=== PATIENT | male | born 1960 | race Caucasian/White ===

== ENCOUNTER 2017-01-18 04:10 | Observation (INO) | payer OTHER ==
[~2017-01-18] VITALS: Ht 185.4 cm; Wt 101.0 kg
[2017-01-18] VITALS (12 sets, daily range): BP systolic 138–224; BP diastolic 77–119; PULSE 63–98; RESP 18–20; TEMP 97.9–98.7; O2SAT 96–100
[2017-01-18] MEDS ORDERED: CHOLMIS5 (04:28)
[2017-01-18] MEDS ORDERED: [UNRECOGNIZED DRUG - REMARK] (04:28)
[2017-01-18] MEDS ORDERED: LISI2.5T3 PO (04:28)
[2017-01-18] MEDS ORDERED: SODIUM CHLORIDE 0.9% FLUSH 10 ML FLUSH IVF PRN (04:30)
[2017-01-18] MEDS ORDERED: PAIN (04:30)
[2017-01-18 04:38] LABS: AUTOMATED NEUTROPHIL # 4.8 TH/MM3 (1.8-7.7); BASOPHIL # 0.1 TH/MM3 (0-0.2); BASOPHIL % 1.4 % (0.0-2.0); EOSINOPHIL # 0.1 TH/MM3 (0-0.4); EOSINOPHIL % 1.5 % (0.0-4.0); HEMATOCRIT 45.4 % (39.0-51.0); HEMO FLAGS DIFF FINAL; LYMPH % 33.5 % (9.0-44.0); MEAN CELL VOLUME 90.7 FL (80.0-100.0); MEAN CORPUSCULAR HGB CONC 33.1 % (32.0-36.0); MONO % 9.1 % (0.0-8.0); NEUT % 54.5 % (16.0-70.0); PLATELET COUNT 177 TH/MM3 (150-450); RED BLOOD COUNT 5.01 MIL/MM3 (4.50-5.90); RED CELL DISTRIBUTION WIDTH 13.3 % (11.6-17.2); WHITE BLOOD COUNT 8.9 TH/MM3 (4.0-11.0)
[2017-01-18 04:53] LABS: APTT (PATIENT) 26.4 SEC (24.3-30.1); PROTHROMBIN TIME - PATIENT 10.5 SEC (9.8-11.6)
--- NOTE | 2017-01-18 04:55 | PD ---
HPI Chief Complaint: Chest Pain Time Seen by Provider: 04:31 Travel History International Travel<30 days: No Contact w/Intl Traveler<30days: No Traveled to known affect area: No History of Present Illness HPI 56-year-old male notes central chest pain that is sharp and awoken from rest. He states he came here to rule out an MA given how severe it was. 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 He states the pain is worse with movement. He denies taking an aspirin today. He states he had a stress test routinely a couple years ago that was okay. He does not follow with a thermodynamic physicist. He denies prior heart issues. He denies other complaints. He notes prior history of herniated disc that felt similar in a different location. He denies history of blood clots but does note multiple long car trips over the past couple weeks PFSH Past Medical History High Cholesterol: Yes Hypertension: Yes Musculoskeletal: Yes (SPINE) Sleep Apnea: Yes Tetanus Vaccination: < 5 Years Influenza Vaccination: Yes Past Surgical History Abdominal Surgery: Yes (REPAIr UMBILICAL HERNIA) Other Surgery: Yes (tendon repair left hand) Social History Alcohol Use: Yes (one glass red wine a day) Tobacco Use: Yes ( CIGAR EVERY 3 WEEKS) Substance Use: No Allergies-Medications (Allergen,Severity, Reaction): Coded Allergies: No Known Allergies (Unverified , 01/18/17) Reported Meds & Prescriptions Reported Meds & Active Scripts Active Reported [Pain] [Cholesterol] [Mood ] Lisinopril 2.5 Mg Tab 2.5 Mg PO DAILY Review of Systems Except as stated in HPI: all other systems reviewed are Neg Physical Exam Narrative GENERAL: Well-nourished, well-developed patient. SKIN: Warm and dry. HEAD: Normocephalic and atraumatic. EYES: No injection or drainage. ENT: No nasal drainage noted. NECK: Supple, trachea midline. CARDIOVASCULAR: Regular rate and rhythm RESPIRATORY: Breath sounds equal bilaterally. No accessory muscle use. GASTROINTESTINAL: Abdomen soft, non-tender, nondistended. EXTREMITIES: No edema. NEUROLOGICAL: Awake and alert. Motor and sensory grossly within normal limits. Normal speech. Data Data Last Documented VS Vital Signs Date Time Temp Pulse Resp B/P Pulse Ox O2 Delivery O2 Flow Rate FiO2 01/18/17 05:18 68 18 183/108 100 Room Air 01/18/17 04:11 98.5 Orders Electrocardiogram (01/18/17 04:26) Ckmb (Isoenzyme) Profile (01/18/17 04:26) Complete Blood Count With Diff (01/18/17 04:26) Comprehensive Metabolic Panel (01/18/17 04:26) Magnesium (Mg) (01/18/17 04:26) Prothrombin Time / Inr (Pt) (01/18/17 04:26) Act Partial Throm Time (Ptt) (01/18/17 04:26) Troponin I (01/18/17 04:26) Chest, Single Ap (01/18/17 04:26) Ecg Monitoring (01/18/17 04:26) Bilateral Bp Monitoring (01/18/17 04:26) Iv Access Insert/Monitor (01/18/17 04:26) Oximetry (01/18/17 04:26) Sodium Chloride 0.9% Flush (Ns Flush) (01/18/17 04:30) Aspirin (Aspirin) (01/18/17 05:00) D-Dimer (01/18/17 04:58) CKMB (01/18/17 04:31) CKMB% (01/18/17 04:31) Nitroglycerin Sl (Nitrostat Sl) (01/18/17 05:30) Enalaprilat Inj (Vasotec Inj) (01/18/17 05:45) Admit Order (Ed Use Only) (01/18/17 05:44) Activity Bed Rest With Brp (01/18/17 05:44) Vital Signs (Adult) Q4H (01/18/17 05:44) Cardiac Rhythm .As Directed (01/18/17 05:44) Notify Dr: Other .PRN (01/18/17 05:44) Notify Dr. Parameters (01/18/17 05:44) Resp Oxygen Nasal Cannula (01/18/17 ) Ckmb (Isoenzyme) Profile (01/18/17 05:44) Ckmb (Isoenzyme) Profile (01/18/17 08:44) Troponin I (01/18/17 05:44) Troponin I (01/18/17 08:44) Electrocardiogram (01/18/17 05:44) Electrocardiogram (01/18/17 08:44) ^ Obtain (01/18/17 05:44) Rn Ante Partum / Telemetry RICK.Q8H (01/18/17 05:44) Labs Laboratory Tests Test 01/18/17 04:31 White Blood Count 8.9 TH/MM3 Red Blood Count 5.01 MIL/MM3 Hemoglobin 15.0 GM/DL Hematocrit 45.4 % Mean Corpuscular Volume 90.7 FL Mean Corpuscular Hemoglobin 30.0 PG Mean Corpuscular Hemoglobin 33.1 % Concent Red Cell Distribution Width 13.3 % Platelet Count 177 TH/MM3 Mean Platelet Volume 10.3 FL Neutrophils (%) (Auto) 54.5 % Lymphocytes (%) (Auto) 33.5 % Monocytes (%) (Auto) 9.1 % Eosinophils (%) (Auto) 1.5 % Basophils (%) (Auto) 1.4 % Neutrophils # (Auto) 4.8 TH/MM3 Lymphocytes # (Auto) 3.0 TH/MM3 Monocytes # (Auto) 0.8 TH/MM3 Eosinophils # (Auto) 0.1 TH/MM3 Basophils # (Auto) 0.1 TH/MM3 CBC Comment DIFF FINAL Differential Comment Prothrombin Time 10.5 SEC Prothromb Time International 1.0 RATIO Ratio Activated Partial 26.4 SEC Thromboplast Time D-Dimer Quantitative (PE/DVT) 0.40 MG/L FEU Sodium Level 141 MEQ/L Potassium Level 4.1 MEQ/L Chloride Level 107 MEQ/L Carbon Dioxide Level 27.4 MEQ/L Anion Gap 7 MEQ/L Blood Urea Nitrogen 12 MG/DL Creatinine 1.21 MG/DL Estimat Glomerular Filtration 62 ML/MIN Rate Random Glucose 107 MG/DL Calcium Level 9.0 MG/DL Magnesium Level 2.0 MG/DL Total Bilirubin 0.3 MG/DL Aspartate Amino Transf 29 U/L (AST/SGOT) Alanine Aminotransferase 37 U/L (ALT/SGPT) Alkaline Phosphatase 87 U/L Total Creatine Kinase 104 U/L Creatine Kinase MB 0.9 NG/ML Troponin I LESS THAN 0.02 NG/ML Total Protein 7.6 GM/DL Albumin 3.8 GM/DL [facility] Medical Decision Making Medical Screen Exam Complete: Yes Emergency Medical Condition: Yes Medical Record Reviewed: Yes (past history confirmed) Interpretation(s) EKG shows NSR, no ST elevation or depression, and no arrhythmias. No significant T-wave inversions. CBC & BMP Diagram 01/18/17 04:31 Last 24 hours Impressions Chest X-Ray 01/18/17 0426 Signed Impressions: Service Date/Time: Wednesday, January 18, 2017 04:35 - CONCLUSION: No acute cardiopulmonary disease. Mila Lyons MD Differential Diagnosis Musculoskeletal, gastritis, PE, cardiac Narrative Course Will check blood work, chest x-ray, EKG and dose with aspirin and reevaluate ed workup no acute, patient given nitro without change, will dose with vasotec as takes lisinopril for htn and admit to dairy technologist Diagnosis Primary Impression: Chest pain Qualified Code: R07.9 - Chest pain, unspecified type Additional Impression: Uncontrolled hypertension Milka Abraham MD January 18, 2017 04:55
[2017-01-18] MEDS ORDERED: ASPIRIN 325 MG TAB PO ONE (05:00)
[2017-01-18 05:01] LABS: ALT (GPT) 37 U/L (12-78); ANION GAP 7 MEQ/L (5-15); AST (GOT) 29 U/L (15-37); BICARBONATE 27.4 MEQ/L (21.0-32.0); BLOOD UREA NITROGEN 12 MG/DL (7-18); CHLORIDE 107 MEQ/L (98-107); GLOMERULAR FILTRATION RATE 62 ML/MIN (>89); POTASSIUM 4.1 MEQ/L (3.5-5.1); SODIUM (NA) 141 MEQ/L (136-145)
[2017-01-18 05:02] LABS: ALKALINE PHOSPHATASE 87 U/L (45-117); CREATINE KINASE 104 U/L (39-308); TOTAL BILIRUBIN ADULT 0.3 MG/DL (0.2-1.0)
--- NOTE | 2017-01-18 05:05 | RADRPT ---
EXAM DATE/TIME: 01/18/2017 04:35 [facility] COMPARISON: No previous studies available for comparison. INDICATIONS : Chest pain. MEDICAL HISTORY : None. SURGICAL HISTORY : None. ENCOUNTER: Initial ACUITY: 1 day PAIN SCORE: 6/10 LOCATION: Bilateral chest FINDINGS: The lungs are clear without infiltrate, nodule, or mass. There is no appreciable pleural effusion fo r technique. Heart and mediastinum are unremarkable. CONCLUSION: No acute cardiopulmonary disease. Mila Lyons MD on January 18, 2017 at 5:04 Board Certified Radiologist. This report was verified electronically.
[2017-01-18 05:14] LABS: CKMB 0.9 NG/ML (0.5-3.6)
[2017-01-18] MEDS ORDERED: NITROGLYCERIN 0.4 MG SL 25 TABS/BTL SL ONE (05:30)
[2017-01-18] MEDS ORDERED: ENALAPRILAT 2.5 MG/2 ML VIAL IV PUSH ONE (05:45)
[2017-01-18 08:19] LABS: CREATINE KINASE 71 U/L (39-308)
[2017-01-18] MEDS ORDERED: traMADol HCL 50 MG TAB PO PRN (09:00)
[2017-01-18] MEDS ORDERED: LISINOPRIL 5 MG TAB PO SCH (09:00)
--- NOTE | 2017-01-18 09:04 | HHI.HP ---
HPI Primary Care Physician [facility] Chief Complaint Chest pain History of Present Illness This is a 56-year-old male that presents to the ED with a complaint of a severe pain just right of sternum that began around 2:30 this morning. It woke him up. He thinks it's similar to pain from his back. He states he has a bad disc in his back. It felt like this discomfort radiated around from his back to the rib. Lasted 2-1/2-3 hours. No associated shortness, nausea, or diaphoresis. Denies history of CAD. He has had a stress test but it was a couple years ago. Currently denies discomfort in his chest. Review of Systems General: Patient denies fevers, chills recent, and recent travel HEENT: Patient denies headache, sore throat, difficulty swallowing. Cardiovascular: Has the chest discomfort as mentioned above. Denies sensation of heart beating rapidly or irregularly. No syncope. Respiratory: Denies shortness of breath or inspirational chest discomfort. Denies coughing wheezing or hemoptysis. GI: Patient denies nausea, vomiting, diarrhea, abdominal pain, bloody stools. Musculoskeletal: Patient denies joint pain or edema. Denies calf pain or edema. Complains of chronic back pain. Neurovascular: Patient denies numbness, tingling, weakness in extremities. Denies headache. Endocrine: Denies polyuria and polydipsia. Hematologic: Denies easy bruising. Skin: Denies rash or itching. Past Family Social History Allergies: Coded Allergies: No Known Allergies (Unverified , 01/18/17) Past Medical History Hypertension, hyperlipidemia, chronic back pain. Denies diabetes and CAD. Past Surgical History Tendon repair of left hand, umbilical hernia repair. Reported Medications Reported Meds & Active Scripts Active Reported [Pain] [Cholesterol] [Mood ] Lisinopril 2.5 Mg Tab 2.5 Mg PO DAILY Active Ordered Medications Current Medications Medications (Trade) Dose Ordered Sig/Amie Route Start Time Stop Time Status Last Admin (NS Flush) 2 ml UNSCH PRN IVF 01/18/17 04:30 (Prinivil) 5 mg DAILY PO 01/18/17 09:00 Family History His father at age 81 of a myocardial infarction. Social History Patient has an occasional cigar. Glass of wine daily. Denies illicit drugs. Physical Exam Vital Signs Vital Signs Date Time Temp Pulse Resp B/P Pulse Ox O2 Delivery O2 Flow Rate FiO2 01/18/17 08:15 98.7 69 18 138/77 99 01/18/17 06:52 18 01/18/17 06:35 98.1 98 18 141/102 100 Room Air 01/18/17 05:18 68 18 183/108 100 Room Air 01/18/17 04:32 99 Room Air 01/18/17 04:21 82 20 98 Room Air 01/18/17 04:11 98.5 74 18 224/119 99 Room Air Physical Exam GENERAL: This is a well-nourished, well-developed patient, in no apparent distress. Patient speaks in clear complete sentences. Patient is pleasant. HEENT: Head is atraumatic and normocephalic. Neck is supple without lymphadenopathy and trachea is midline. No JVD or carotid bruits. CARDIOVASCULAR: Regular rate and rhythm without murmurs, gallops, or rubs. RESPIRATORY: Clear to auscultation. Breath sounds equal bilaterally. No wheezes , rales, or rhonchi. Chest wall is nontender. No use of accessory muscles. GASTROINTESTINAL: Abdomen is nontender, nondistended. Abdomen soft. No obvious pulsatile mass or bruit. No CVA tenderness. Strong femoral pulses bilaterally. Normal bowel sounds in all quadrants. MUSCULOSKELETAL: Patient is moving upper and lower extremities freely. No calf tenderness or edema, no Homans sign. Strong pulses in upper and lower extremities. NEUROLOGICAL: Patient is alert and oriented. Cranial nerves 2-12 are grossly intact. No focal deficits and speech is clear. SKIN: No rash and turgor is normal. Laboratory Laboratory Tests Test 01/18/17 01/18/17 04:31 07:40 White Blood Count 8.9 Red Blood Count 5.01 Hemoglobin 15.0 Hematocrit 45.4 Mean Corpuscular Volume 90.7 Mean Corpuscular Hemoglobin 30.0 Mean Corpuscular Hemoglobin 33.1 Concent Red Cell Distribution Width 13.3 Platelet Count 177 Mean Platelet Volume 10.3 Neutrophils (%) (Auto) 54.5 Lymphocytes (%) (Auto) 33.5 Monocytes (%) (Auto) 9.1 Eosinophils (%) (Auto) 1.5 Basophils (%) (Auto) 1.4 Neutrophils # (Auto) 4.8 Lymphocytes # (Auto) 3.0 Monocytes # (Auto) 0.8 Eosinophils # (Auto) 0.1 Basophils # (Auto) 0.1 CBC Comment DIFF FINAL Differential Comment Prothrombin Time 10.5 Prothromb Time International 1.0 Ratio Activated Partial 26.4 Thromboplast Time D-Dimer Quantitative (PE/DVT) 0.40 Sodium Level 141 Potassium Level 4.1 Chloride Level 107 Carbon Dioxide Level 27.4 Anion Gap 7 Blood Urea Nitrogen 12 Creatinine 1.21 Estimat Glomerular Filtration 62 Rate Random Glucose 107 Calcium Level 9.0 Magnesium Level 2.0 Total Bilirubin 0.3 Aspartate Amino Transf 29 (AST/SGOT) Alanine Aminotransferase 37 (ALT/SGPT) Alkaline Phosphatase 87 Total Creatine Kinase 104 71 Creatine Kinase MB 0.9 Troponin I LESS THAN 0.02 LESS THAN 0.02 Total Protein 7.6 Albumin 3.8 Result Diagram: 01/18/1743001/18/17430 Imaging Last 48 hours Impressions Chest X-Ray 01/18/17425 Signed Impressions: Service Date/Time: Wednesday, January 18, 2017 04:35 - CONCLUSION: No acute cardiopulmonary disease. Mila Lyons MD Course EKGs have sinus rhythm without significant ST segment depressions or elevations. Assessment and Plan Assessment and Plan * Chest pain: Patient has had serial cardiac enzymes and EKGs for ruling out purposes. He has been seen by Dr. Adrian Jaffe of cardiology in the chest pain center and will undergo a Lexiscan. He'll be discharged home if the stress test was nonischemic with instructions to follow[facility]. * Hypertension: Continue current medication. * Hyperlipidemia: Continue current medication Patient is stable at this time. He is agreeable to this plan. Bin Mccoy January 18, 2017 09:04
[2017-01-18] MEDS ORDERED: REGADENOSON INJ 0.4 MG/5 ML SYR ONE (10:49)
--- NOTE | 2017-01-18 12:36 | RADRPT ---
EXAM DATE/TIME: 01/18/2017 10:42 [facility] COMPARISON: No previous studies available for comparison. INDICATIONS : Central chest pain for 1 day. Angina. DOSE: 25.3 mCi Tc99m Myoview at stress. 8.1 mCi Tc99m Myoview at rest. 0.4 mg Lexiscan STRESS SYMPTOMS: Shortness of breath and flush. EJECTION FRACTION: 47% MEDICAL HISTORY : Hypercholesterolemia. Hypertension. Smoker. SURGICAL HISTORY : Left hand. ENCOUNTER: Initial ACUITY: 2 days PAIN SCALE: 2/10 LOCATION: Midsternal chest TECHNIQUE: The patient underwent pharmacologic stress with infusion of prescribed dose. Continuous ECG tracing was monitored during stress. Gated SPECT imaging was performed after stress and conventional SPECT i maging was performed at rest. The examination was performed on a SPECT/CT scanner, both attenuation and non-corrected datasets were reviewed. FINDINGS: DISTRIBUTION: The maximum perfused segment at stress is in the inferior wall. PERFUSION STUDY: The pattern of perfusion at stress shows areas of 20-30% redistribution in the anterolateral, septal and inferior ramon. GATED STUDY: Hypokinesis most prominent in the inferoseptal wall with slightly reduced ejection fraction. CONCLUSION: 1. Scintigraphic findings concerning for multi-territory coronary artery disease involving the donavan lateral, septal and inferior ramon. 2. Slightly reduced ejection fraction of 40% with some hypokinesis predominantly in the inferoseptal region. RISK CATEGORY: Intermediate (1-3% Annual Mortality Rate) Hermes Esqueda MD on January 18, 2017 at 12:28 Board Certified Radiologist. This report was verified electronically.
--- NOTE | 2017-01-18 13:03 | EKG ---
Date Performed: 01/18/2017 Time Performed: 04:22:25 PTAGE: 56 years EKG: Sinus rhythm NORMAL ECG INTERPRETATION BASED ON A DEFAULT AGE OF 40 YEARS NO PREVIOUS TRACING DOCTOR: Marques Vela Interpretating Date/Time 01/18/2017 13:01:16
--- NOTE | 2017-01-18 13:14 | EKG ---
Date Performed: 01/18/2017 Time Performed: 06:43:44 PTAGE: 56 years EKG: Sinus rhythm NORMAL ECG Compared to prior tracing no significant change PREVIOUS TRACING 01/18/201712.19. DOCTOR: Marques Vela Interpretating Date/Time 01/18/2017 13:12:11
[2017-01-18] MEDS ORDERED: SODIUM CHLOR 0.9% 1000 ML INJ 1,000 ML IV SCH (14:12)
[2017-01-18] MEDS ORDERED: ASPI1TAB69 PO (14:17)
[2017-01-18] MEDS ORDERED: [UNRECOGNIZED DRUG - CODE] PO (14:17)
[2017-01-18] MEDS ORDERED: PRAV80TA2 PO (14:17)
[2017-01-18] MEDS ORDERED: OMEP20CA2 PO (14:17)
[2017-01-18] MEDS ORDERED: LISI40TA PO (14:17)
[2017-01-18] MEDS ORDERED: LAMO150T PO (14:17)
[2017-01-18] MEDS: METOPROLOL TARTRATE 25 MG TAB PO SCH ×2 (14:43→20:31)
--- NOTE | 2017-01-18 15:00 | TR ---
Date Performed: 01/18/2017 Time Performed: 11:16:39 DOCTOR: Adrian Jaffe DRUG LIST: CLINICAL HISTORY: ANGINA REASON FOR TEST: Angina REASON FOR ENDING: OBSERVATION: CONCLUSION: Lexiscan stress test was performed under standard four minute protocol. Radionuclid e was injected one minute prior to ending the test. No electrocardiographic abormalities were present to suggest ischemia. Nuclear imaging and interpretation are pending. COMMENTS:
[2017-01-18] MEDS: PRAVASTATIN SOD 80 MG TAB PO SCH (15:33)
--- NOTE | 2017-01-18 15:36 | MB ---
cc: VAIBHAV SU DATE OF CONSULTATION: 01/18/2017 REASON FOR CONSULTATION Abnormal stress test. HISTORY OF PRESENT ILLNESS A 56-year-old gentleman who came into the emergency department with severe substernal chest pain. At 2:30 a.m. yesterday it woke him from sleep and radiated towards his back. It lasted about two hours. He came into the emergency department and was admitted to the chest pain center. There he underwent a stress test which showed a intermediate risk study with multi territory coronary artery disease involving the anterolateral, septal and inferior ramon, in addition to cardiomyopathy with a reduced ejection fraction. The patient is currently chest pain free. PAST MEDICAL HISTORY 1. Hypertension. 2. Hyperlipidemia. 3. Chronic back pain. MEDICATIONS Medication at home: 1. Cholesterol medication. 2. Mood medication. 3. Lisinopril 2.5 mg a day. ALLERGIES No known drug allergies. FAMILY HISTORY Denies any family history of early coronary artery disease or sudden cardiac . SOCIAL HISTORY Occasional alcohol use. Occasional cigar use. No illicit drugs. REVIEW OF SYSTEMS A 12-point review of systems was performed and negative unless otherwise noted in the history of present illness. PHYSICAL EXAMINATION VITAL SIGNS: Temperature 98, pulse 69, blood pressure 148/97 mmHg. GENERAL: Alert and oriented x3, in no acute distress. HEENT: Pupils reactive to light and accommodation. Extraocular movements are intact. NECK: No jugular venous distention. No thyromegaly. No lymphadenopathy. No carotid bruits. LUNGS: Clear to auscultation bilaterally. CARDIOVASCULAR: Regular rate and rhythm without murmurs, rubs or gallops. ABDOMEN: Nontender, nondistended. Good bowel sounds. No hepatosplenomegaly. EXTREMITIES: No clubbing, cyanosis or edema. Good peripheral pulses. NEUROLOGIC: Cranial nerves intact. Motor and sensory grossly intact. LABORATORY WBC 8.9, hemoglobin 15, platelet count 177. INR is 1. Sodium 141, potassium 4.1, BUN 12, creatinine 1.21. Troponins negative. ELECTROCARDIOGRAM Electrocardiogram is sinus rhythm, no ischemic changes. ASSESSMENT 1. Unstable angina. 2. Hypertension. PLAN Given the patient's chest pain symptoms in addition to intermediate risk abnormal stress test, would recommend moving forward with cardiac catheterization. The risks, benefits and alternatives were discussed with the patient and he is agreeable. Labs within normal limits. Given his cardiomyopathy will check a 2-D echocardiogram for confirmation. Will make him n.p.o. after midnight and plan for right radial approach for cardiac cath. MD SPENSER Smith/DALY /2:56 PM /3:30 PM
[2017-01-18] MEDS ORDERED: LISINOPRIL 20 MG TAB PO ONE (16:15)
[2017-01-18] MEDS ORDERED: ENALAPRILAT 1.25 MG/ML VIAL IV PUSH PRN (19:00)
[2017-01-18] MEDS ORDERED: ATORVASTATIN 40 MG TAB PO SCH (21:00)
[2017-01-19 00:13] VITALS: BP 131/96; PULSE 68; RESP 16; TEMP 98.2; O2SAT 98
[2017-01-19 04:19] VITALS: BP 148/92; PULSE 59; RESP 16; TEMP 98; O2SAT 98
[2017-01-19 07:17] VITALS: BP 140/89; PULSE 65; RESP 18; TEMP 98.1; O2SAT 95
[2017-01-19 07:50] VITALS: PULSE 57
[2017-01-19 07:58] LABS: HDL CHOLESTEROL 33.6 MG/DL (40.0-60.0)
[2017-01-19] MEDS: METOPROLOL TARTRATE 25 MG TAB PO SCH (08:11)
[2017-01-19] MEDS: PRAVASTATIN SOD 80 MG TAB PO SCH (08:11)
[2017-01-19] MEDS ORDERED: HEPARIN-NS/PF INJ 500 ML ONE (08:39)
[2017-01-19] MEDS ORDERED: MIDAZOLAM HCL 2 MG/2 ML VIAL ONE ×2 (08:40→09:09)
[2017-01-19] MEDS ORDERED: NITROGLYCERIN INJ 5 ML ONE (08:40)
[2017-01-19] MEDS ORDERED: VERAPAMIL HCL 5 MG/2 ML VIAL ONE (08:40)
[2017-01-19] MEDS ORDERED: HEPARIN SODIUM - IV 10,000 UNITS/10 ML VIAL ONE (08:40)
[2017-01-19] MEDS ORDERED: PANTOPRAZOLE SOD 20 MG DELAYED RELEASE TAB PO SCH (09:00)
[2017-01-19] MEDS ORDERED: lamoTRIgine 100 MG TAB PO SCH (09:00)
[2017-01-19] MEDS ORDERED: LISINOPRIL 20 MG TAB PO SCH (09:00)
[2017-01-19] MEDS ORDERED: ASPIRIN 325 MG TAB PO SCH (09:00)
--- NOTE | 2017-01-19 09:25 | CATHPROC ---
[employer] HIS Report Study Information Study Number Scheduled Start Study Start [id number] 01/19/2017 Jan 19 2017 8:33AM Referring Institution Admit Source Facility Department 1 Emergency department [facility] - It Quality Analyst Physician and Clinical Staff Initial Alden [employer] Delmy Ray,RN Recorder Jakub Santana,RT(R) Gela Barone,MIKE TECH2 Procedures Performed Procedure Location (Site) Vessel Name Coronary Angiograms LCA Left Coronary Coronary Angiograms RCA Right Coronary Wire insertion Radial (right) Radial Art. Equipment Time Social Welfare Clerk Description Size Mfg Part Number Used/Scraped TRANSDUCER, TRUWAVE 09:00 [employer]STELLAN[employer] RAY * [id number] Used W/STOCKCOCK [id number] *[id number] *[id number] 09:00 [employer] PACK, CCL CUSTOM * Used *[id number] 09:00 [employer] SUPPORT, ARTERIAL ADULT [id number] Used 09:00 [employer] PACER PEN, SKIN DUAL W/ RULER * [id number] Used BAND, RADIAL COMPRESSION TR [id number] 09:25 [employer] 29CM Used LARGE 29 *[id number] SHEATH, FR6 RADIAL PRELUDE 09:00 [employer] FR 6 [id number] Used EASE 11CM [id number] 09:00 [employer] WIRE, EXCHANGE 260CM 3MMJ 260CM Used *[id number] 09:00 [employer] OMNIPAQUE, 350 MG, 150ML 150ML [id number] Used [id number] 09:00 [facility] BLANKET,WARM AIR CCL * Used *[id number] History: Allergies Allergy Reaction No Known Allergies History: Risk Factors Family History of Hypertension Dyslipidemia Previous HI Previous Heart Failure Premature CAD Yes Yes No Yes No Prior Valve Prior PCI Prior CABG Surgery No No No Cerebrovascular Peripheral Artery Chronic Lung On Dialysis Diabetes Disease Disease Disease No No No No No History: Stress Tests Stress or Imaging Studies Performed Yes Standard Exercise Stress Test No Stress Echo No Stress Test SPECT Stress Test SPECT Result Stress Test SPECT Ischemia Risk/Extent Yes Positive Intermediate Stress Test CMR No Cardiac CTA Coronary Calcium Score No No History: Other Current Smoker Method Yes Cigars Labs Hgb (g/dl) Hct (%) WBC (l/cumm) Platelets (thousands) 12.00-18.00 37.00-55.00 4.80-10.80 140.00-450.00 15.0 45.4 8.9 177 Glucose (mg/dl) BUN (mg/dl) Creatinine (mg/dl) BUN:Creatinine (1:x) 60.00-110.00 8.00-20.00 0.10-9.00 10.00-20.00 107 12 1.2 10 Na (meq/l) K (meq/l) 138.00-146.00 3.80-5.10 141 4.1 Troponin I (ng/ml) CPK-MB (ng/ML) 0.40-2.30 0.00-7.00 0.02 Not Drawn Medication Medication Total Dose (Bolus/Oral) Medication Total Dosage/Unit 1% XYLOCAINE 5 mL FENTANYL 100 mcg HEPARIN 5000 units OXYGEN 2 l/min VERSED 4 mg Medications (Bolus/Oral) Medication Time Given Dosage/Unit Administered By Reason VERSED 01/19/2017 8:55:36 AM 2 mg Delmy Ray 2 mg VERSED given in lab by Delmy Ray RN in Left Forearm via Peripheral IV. Ordered by Alden Doe. FENTANYL 01/19/2017 8:56:52 AM 50 mcg Delmy Ray 50 mcg FENTANYL given in lab by Delmy Ray RN in Left Forearm via Peripheral IV. Ordered by Alden Grant. 1% XYLOCAINE 01/19/2017 8:57:47 AM 5 mL Alden Doe 5 mL 1% XYLOCAINE given in lab by Alden Doe in Right Groin via Subcutaneous. Ordered by Getachew Doe. HEPARIN 01/19/2017 8:58:41 AM 5000 units Delmy Ray 5000 units HEPARIN given in lab by Delmy Ray RN in Left Forearm via Peripheral IV. Ordered b Alden Al. VERSED 01/19/2017 9:10:39 AM 2 mg Delmy Ray 2 mg VERSED given in lab by Delmy Ray RN in Left Forearm via Peripheral IV. Ordered by Alden Doe. FENTANYL 01/19/2017 9:11:52 AM 50 mcg Delmy Ray 50 mcg FENTANYL given in lab by Delmy Ray RN in Left Forearm via Peripheral IV. Ordered by Alden Grant. OXYGEN 01/19/2017 9:16:34 AM 2 l/min Delmy Ray 2 l/min OXYGEN given in lab by Delmy Ray, CLAUDIA via Nasal. Ordered by Alden Doe. Medication (Drip) Medication Time Given Dosage/Unit Concentration/Unit Diluent (ml) Solution IV Solutions 01/19/2017 8:40:36 AM 0 mL (IV) 500 NaCl .9 Patient arrived on IV Solutions given by Alden Doe in Left Forearm via Peripheral IV. Pump/Drip Flow = 20 ml/hr using NaCl .9. Ordered by Alden Doe. Initial Case Assessment Cardiovascular HR Rhythm NIBP Chest Pain 64 sr 172/108 0 Edema Present Skin color Skin None Normal Warm Dry Circulatory - Right Pulses Dorsalis Pedis Femoral Radial 2 2 2 Scale (0,1,2,3,4,d) Circulatory - Left Pulses Dorsalis Pedis Femoral Radial 2 2 Scale (0,1,2,3,4,d) Neurological State Oriented to time-place- Alert Moves all extremities person Respiration - General Respiration Rate SpO2 (%) O2 (lpm) (B/min) 18 98 0 Final Case Assessment Cardiovascular HR Rhythm NIBP Chest Pain 64 sr 129/83 0 Edema Present Skin color Skin None Normal Warm Dry Circulatory - Right Pulses Dorsalis Pedis Femoral Radial 2 2 2 Scale (0,1,2,3,4,d) Circulatory - Left Pulses Dorsalis Pedis Femoral Radial 2 2 Scale (0,1,2,3,4,d) Neurological State Oriented to time-place- Alert Moves all extremities person Respiration - General Respiration Rate SpO2 (%) O2 (lpm) (B/min) 18 95 2 Chronological Log Time Study Chronological Log 8:32:52 Patient arrived via Bed. Positive Allens test performed by Jakub Santana. 8:32:54 Patient Name, D.O.B, / Armband Verified By R.N. 8:32:55 Consent signed by the physician and the patient and verified by the It Quality Analyst staff. 8:32:57 Pre-op and post- op instructions given; patient acknowledges understanding of instructions. 8:33:02 Verbal Stimulation=2 Physical Stimulation=2 Airway=2 Respiration=2 TOTAL=8. (0=absent, 1=li mited, 2=present) 8:33:37 Presedation assessment performed by It Quality Analyst RN. 8:33:39 Patient has been NPO for More than 6Hrs. 8:39:30 Skin Breakdown noted is wound on left great toe. 8:39:57 A # 20 IV was noted in the Antecubital (right). Grade = 0 8:40:12 A # 20 IV was noted in the Forearm (left). Grade = 0 Vitals capture started with the following parameters, Patient=Adult, Interval=15 min, Initial P hzwdufa=538 mmHg, 8:40:33 Deflation Rate=5 mmHg Patient arrived on IV Solutions given by Alden Doe in Left Forearm via Peripheral IV. Pump /Drip Flow = 20 ml/hr 8:40:36 using NaCl .9. Ordered by Alden Doe. 8:41:07 History and physical on the chart or being dictated. 8:41:12 Reference ECG taken 8:41:43 HR=71 bpm, DHBN=887/108 mmhg, SpO2=99.0 %, Resp=13 B/min, Purvis=2 Assessment: Initial Case, HR=64 BPM, Rhythm=sr, YLEK=927/108 mmhg, Chest Pain=0, Edema=None, Col or=Normal, Skin = Warm, Dry Right Pulses: Jet Ped=2, Femoral=2, Radial=2 8:45:04 Left Pulses: Jet Ped=2, Femoral=2 Neurological: State=Alert, Ox3, MARTIN Respiration: Resp=18 B/min, SpO2=98 %, O2=0 lpm 8:46:20 HR=63 bpm, YMUR=866/108 mmhg, YyW6=164.0 %, Resp=48 B/min, Purvis=2 8:51:17 HR=68 bpm, IUOU=944/109 mmhg, SpO2=99.0 %, Resp=9 B/min, Purvis=2 8:51:30 Bilateral groins and right radial prepped with 2% chlorhexidine, and with a 3 min. waiting t rodrick. 8:52:06 Pressure channel 1 zeroed. 8:53:22 MD arrived. 8:55:36 2 mg VERSED given in lab by Delmy Ray, RN in Left Forearm via Peripheral IV. Ordered by Alden Doe. 8:56:20 HR=73 bpm, JWVX=030/99 mmhg, SpO2=99.0 %, Resp=8 B/min, Purvis=2 50 mcg FENTANYL given in lab by Delmy Ray, RN in Left Forearm via Peripheral IV. Ordered by Nader, 8:56:52 Alden. Time Out. Correct patient, correct procedure,correct physician, ,power injector not loaded with contrast with surgical 8:57:15 team present. Time Out Concurred by MD, individual staff and BATTERY REPAIRER in procedure. Not loaded at th is time. 8:57:36 Presedation re-assessment performed by It Quality Analyst RN. 8:57:37 Case Start 8:57:39 Verbal Stimulation=2 Physical Stimulation=2 Airway=2 Respiration=2 TOTAL=8. (0=absent, 1=wiggins ited, 2=present) 8:57:47 5 mL 1% XYLOCAINE given in lab by Alden Doe in Right Groin via Subcutaneous. Ordered by Alden Doe. 8:58:00 Access site was Radial Artery. right radial A SHEATH, FR6 RADIAL PRELUDE EASE 11CM FR 6 was advanced into the Radial (right) using the Wero oro 8:58:02 technique. 5000 units HEPARIN given in lab by Delmy Ray RN in Left Forearm via Peripheral IV. Orde red by Nader, 8:58:41 Alden. A JR 5.0 INFINITI CATHETER FR 6 was advanced over a wire. OMNIPAQUE, 350 MG, 150ML 150ML was use d for 9:00:31 injections. Recorded Pressure: LV, HR=78, Condition=Condition 1 9:00:50 (Left Ventricle) LV 130/3/8 9:01:17 HR=78 bpm, DTXB=088/97 mmhg, SpO2=94.0 %, Resp=11 B/min, Purvis=2 Recorded Pressure: LV, Ao, HR=73, Condition=Condition 1 9:01:54 (Left Ventricle) LV 120/1/7, (Aorta) Ao 116/81/98 Recorded Pressure: Ao, HR=77, Condition=Condition 1 9:02:04 (Aorta) Ao 133/93/112 9:02:10 The RCA was injected and visualized at various angles. OMNIPAQUE, 350 MG, 150ML 150ML used. 9:06:12 HR=63 bpm, PYPU=458/94 mmhg, SpO2=89.0 %, Resp=12 B/min, Purvis=2 9:09:00 A WIRE, EXCHANGE 260CM 3MMJ 260CM was inserted via Radial (right). After removing the current catheter a JL 4.0 INFINITI CATHETER FR 4 was advanced over a WIRE, EX CHANGE 260CM 9:09:35 3MMJ 260CM. 9:10:39 2 mg VERSED given in lab by Delmy Ray, CLAUDIA in Left Forearm via Peripheral IV. Ordered by Alden Doe. 9:11:15 HR=68 bpm, OPFP=867/100 mmhg, SpO2=90.0 %, Resp=10 B/min, Purvis=2 50 mcg FENTANYL given in lab by Delmy Ray, RN in Left Forearm via Peripheral IV. Ordered by Nader, 9:11:52 Alden. 9:13:28 The LCA was injected and visualized at various angles. OMNIPAQUE, 350 MG, 150ML 150ML used. 9:15:45 Catheter was removed OTW. 9:16:22 HR=68 bpm, TQYL=796/83 mmhg, SpO2=83.0 %, Resp=9 B/min, Purvis=2 9:16:34 2 l/min OXYGEN given in lab by Delmy Ray RN via Nasal. Ordered by Alden Doe. Assessment: Final Case, HR=64 BPM, Rhythm=sr, NFAS=529/83 mmhg, Chest Pain=0, Edema=None, [place] r=Normal, Skin = Warm, Dry Right Pulses: Jet Ped=2, Femoral=2, Radial=2 9:17:42 Left Pulses: Jet Ped=2, Femoral=2 Neurological: State=Alert, Ox3, MARTIN Respiration: Resp=18 B/min, SpO2=95 %, O2=2 lpm 9:18:35 Catheter(s) removed without difficulty 9:18:38 Case End Radial Compression Device Used. 95 mLs of air placed in BAND, RADIAL COMPRESSION TR LARGE 29 2 9CM. Affected 9:18:41 hand 15 % O2 saturation. 9:19:26 No case complications noted. ::29 Cine recording checked. 9:19:34 Bedside Report will be given. 9:19:38 Contrast Scanned 9:21:54 HR=60 bpm, UPRP=671/93 mmhg, SpO2=93.0 %, Resp=15 B/min, Purvis=2 9:23:10 Vitals capture stopped. End Study - Contrast Media Used In Study Contrast Total Opened (mL) Total Used (mL) Total Wasted (mL) Omnipaque 70 70 0 End Study - Maximum Contrast Load Max Contrast Load (mL) 420.8 End Study - Radiation Exposure Fluoro Time (minutes) 2.8 End Study - Patient Disposition Complications Transferred To Telemetry Bed
[2017-01-19] MEDS ORDERED: MISC INFORMATION XX ONE (09:30)
--- NOTE | 2017-01-19 09:48 | MA ---
cc: VAIBHVA SU DATE: 01/19/2017 INDICATION Unstable angina. Urgent catheterization. PROCEDURE PERFORMED 1. Fluoroscopy with interpretation. 2. Coronary angiography. 3. Left heart catheterization. METHOD The risks, benefits and alternatives were discussed with the patient. The patient understood and consented to the procedure. The patient was brought into the catheterization lab and placed on the catheterization table. The right wrist was prepped and draped in a sterile fashion. The right wrist was anesthetized with 2% lidocaine. The right radial artery was cannulated and a 6 Congolese, 7 cm sheath was placed without difficulty. LEFT HEART CATHETERIZATION A 5-Congolese JR5 catheter was advanced across the aortic valve. Intraoperative hemodynamics showed 120/70 mmHg. CORONARY ANGIOGRAPHY 1. The left main coronary is angiographically normal. 2. The left anterior descending coronary is angiographically normal. 3. The left circumflex is angiographically normal. 4. The right coronary has minor luminal irregularities. CONCLUSIONS 1. Mild nonobstructive coronary disease. 2. Normal left-sided filling pressure. PLAN The patient will be monitored closely for any post-procedural complications. A HemoBand will be applied. Anticipate discharge later today. MD SPENSER Smith/DALY /9:23 AM /9:43 AM
[2017-01-19] MEDS ORDERED: METO25TA3 PO (10:03)
--- NOTE | 2017-01-19 10:05 | HHI.PR ---
Subjective Remarks Follow-up for chest pain. The patient is seen after cardiac catheterization today and has been cleared by cardiology for discharge. The patient denies any further chest pain or shortness of breath. 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 He feels like the pain was referred from the herniated disc he has in his back, which is a chronic problem for him. Objective Vitals Vital Signs Date Time Temp Pulse Resp B/P Pulse Ox O2 Delivery O2 Flow Rate FiO2 01/19/17 09:40 94 Room Air 01/19/17 07:50 57 01/19/17 07:17 98.1 65 18 140/89 95 01/19/17 04:19 98.0 59 16 148/92 98 01/19/17 00:13 98.2 68 16 131/96 98 01/18/17 21:01 96 01/18/17 20:22 98.0 63 18 172/102 97 01/18/17 20:06 68 01/18/17 18:25 174/110 Automatic Cuff 01/18/17 15:25 97.9 78 20 157/104 97 01/18/17 12:20 98.7 69 20 148/97 100 I/O 01/18/17 01/18/17 01/18/17 01/19/17 01/19/17 01/19/17 06:59 14:59 22:59 06:59 14:59 22:59 Output Total 400 ml Balance -400 ml Output Urine Total 400 ml Result Diagram: 01/18/17 0431 01/18/17 0431 Imaging Last Impressions Chest X-Ray 01/18/17 0426 Signed Impressions: Service Date/Time: Wednesday, January 18, 2017 04:35 - CONCLUSION: No acute cardiopulmonary disease. KZo Lyons MD Myocardial Perfusion Scan Nuc Med 01/18/17 0000 Signed Impressions: Service Date/Time: Wednesday, January 18, 2017 10:42 - CONCLUSION: 1. Scintigraphic findings concerning for multi-territory coronary artery disease involving the anterolateral, septal and inferior ramon. 2. Slightly reduced ejection fraction of 40%% with some hypokinesis predominantly in the inferoseptal region. RISK CATEGORY: Intermediate (1-3%% Annual Mortality Rate) Hermes Esqueda MD Objective Remarks GENERAL: Well-developed well-nourished. In no acute distress. SKIN: Warm and dry. No lesions noted. HEENT: Normocephalic. Pupils equal and round. Mucous membranes pink and moist. CARDIOVASCULAR: Regular rate and rhythm. No murmur appreciated. RESPIRATORY: No accessory muscle use. Clear to auscultation. Breath sounds equal bilaterally. GASTROINTESTINAL: Abdomen soft, non-tender, nondistended. Bowel sounds x4. MUSCULOSKELETAL: No obvious deformities. No clubbing or cyanosis. No edema. NEUROLOGICAL: Awake and alert. No focal neurological deficits. Moves upper and lower extremities spontaneously. Normal speech. PSYCHIATRIC: Appropriate mood and affect; insight and judgment normal. A/P Assessment and Plan 56-year-old male with: Chest pain: The patient was admitted to chest pain center and had normal cardiac enzymes and EKGs. He underwent a nuclear stress test which showed findings concerning for multi-territory CAD. Cardiology was consulted and the patient underwent cardiac catheterization with Dr. Doe. Cardiac catheterization was negative and the patient was cleared by cardiology for discharge. Continue aspirin and statin. Patient started on beta almaz. Back pain: Chronic. Possible referred pain to the chest causing discomfort as above. No further complaints at this time. Follow-up with PCP as outpatient. Hypertension: Chronic, stable. Continue home medications. Metoprolol added. BP controlled. Discharge Planning Discharge patient to home after post catheterization protocol Condition on discharge: Improved Heart healthy Diet as tolerated Regular activity Rx written: Metoprolol Follow-up with primary care physician and cardiology Byron Kelley January 19, 2017 10:04
[2017-01-19 16:31] LABS: HEMOGLOBIN A1b 1.5 %; HEMOGLOBIN Ao 86.5 %; HEMOGLOBIN LA1C 1.5 %; HEMOGLOBIN P3 3.3 %
== END 2017-01-19 14:10 | disposition home or self-care (01) ==
LOC: NEPC 04:10 → NEDA 05:46 → NEPFCDU 07:33 → HCIS 01-19 08:36
PROVIDERS: ADMIT Internal Medicine; ATTEND Internal Medicine
DX: I25.110 Atherosclerotic heart disease of native coronary artery with unstable angina pectoris (principal); I10 Essential (primary) hypertension; E78.5 Hyperlipidemia, unspecified; G89.29 Other chronic pain; M54.9 Dorsalgia, unspecified; E78.00 Pure hypercholesterolemia, unspecified; F17.290 Nicotine dependence, other tobacco product, uncomplicated; G47.30 Sleep apnea, unspecified
CPT/HCPCS: 71010; 78452; 80053; 80061; 82550; 82552; 82948; 83036; 83735; 84484; 85025; 85379; 85610; 85730; 93005; 93017; 93454; 93458; 99285; A9502; C1769; C1893; G0378; J1644; J2250; J2785; J3010; J7030